=== PATIENT | male | born 1980 | race Caucasian/White ===

== ENCOUNTER 2022-10-15 10:21 | Emergency (ER) | payer OTHER ==
--- NOTE | 2022-10-15 10:36 | ED Physician Documentation ---
PD HPI ABD PAIN - Stated complaint Stated Complaint: ABD PX - Chief complaint Chief Complaint: Abd Pain - History obtained from History obtained from: Patient - History of Present Illness Timing - onset: How many hours ago (3-4), Today Timing - duration: Hours Timing - details: Abrupt onset, Still present Quality: Aching, Sharp, Pain Location: RUQ, Epigastric Radiation: No: Lower back, Right flank Associated symptoms: Nausea. No: Fever, Vomiting, Diarrhea Similar symptoms before: Has not had sx before Recently seen: Not recently seen Review of Systems Constitutional: denies: Fever, Chills Nose: denies: Rhinorrhea / runny nose, Congestion Throat: denies: Sore throat Respiratory: denies: Cough : denies: Dysuria, Frequency Musculoskeletal: denies: Neck pain, Back pain PD PAST MEDICAL HISTORY - Past Medical History Cardiovascular: None Respiratory: None GI: None : None - Present Medications Home Medications: Ambulatory Orders Medication Instructions Recorded Confirmed HYDROcod/ACETAM 5/325 [[place] 5/325] 1 ea PO Q6H PRN #14 tablet 10/15/22 - Allergies Allergies/Adverse Reactions: Allergies Allergy/AdvReac Type Severity Reaction Status Date / Time No Known Drug Allergies Allergy Verified 10/15/22 10:35 PD ED PE NORMAL - Vitals Vital signs reviewed: Yes - General General: Alert and oriented X 3, Well developed/nourished, Other (appears in pain, holding RUQ abd. ) - Neck Neck: Supple, no meningeal sign, No adenopathy - Cardiac Cardiac: RRR, No murmur - Respiratory Respiratory: No respiratory distress, Clear bilaterally - Abdomen Abdomen: Normal bowel sounds, Soft, Non distended, Other (moderately tender RUQ with some percussion and rebound tenderness locally there. No CVA tenderness. ) Results - Vitals Vitals: Vital Signs - 24 hr 10/15/22 10/15/22 10/15/22 10:32 12:42 12:43 Temperature 36.4 C L Heart Rate 70 82 49 L Respiratory 18 20 18 Rate Blood Pressure 127/96 H 130/94 H 132/94 H O2 Saturation 97 98 98 Oxygen O2 Source Room air - Labs Labs: Laboratory Tests 10/15/22 10/15/22 10/15/22 10:59 10:59 11:54 WBC 12.9 H RBC 4.82 Hgb 14.5 Hct 42.3 MCV 87.8 MCH 30.1 MCHC 34.3 RDW 13.3 Plt Count 209 MPV 10.6 Neut # (Auto) 9.7 H Lymph # (Auto) 1.9 [place] # (Auto) 0.8 Eos # (Auto) 0.4 Baso # (Auto) 0.1 Absolute Nucleated RBC 0.00 Band Neuts % (Manual) Not Reportable Abnorm Lymph % (Manual) Not Reportable Nucleated RBC % 0.0 Neutrophils # (Manual) Not Reportable Lymphocytes # (Manual) Not Reportable Monocytes # (Manual) Not Reportable Eosinophils # (Manual) Not Reportable Basophils # (Manual) Not Reportable Differential Comment MANUAL=AUTO DIFF Manual Slide Review Indicated WBC Morphology NORMAL APPEARANCE Platelet Estimate NORMAL (130-450,000) Platelet Morphology NORMAL APPEARANCE RBC Morph Micro Appear NORMAL APPEARANCE Sodium 137 Potassium 4.0 Chloride 107 Carbon Dioxide 23 Anion Gap 7.0 BUN 10 Creatinine 0.7 Estimated GFR (MDRD) 124 Glucose 113 H Calcium 9.1 Total Bilirubin 0.4 AST 36 ALT 34 Alkaline Phosphatase 81 Total Protein 8.0 Albumin 4.3 Globulin 3.7 Albumin/Globulin Ratio 1.2 Lipase 59 H Urine Color YELLOW Urine Clarity CLEAR Urine pH 5.5 Ur Specific [place] 1.025 Urine Protein NEGATIVE Urine Glucose (UA) NEGATIVE Urine Ketones NEGATIVE Urine Occult Blood NEGATIVE Urine Nitrite NEGATIVE Urine Bilirubin NEGATIVE Urine Urobilinogen 0.2 (NORMAL) Ur Leukocyte Esterase NEGATIVE Ur Microscopic Review NOT INDICATED Urine Culture Comments NOT INDICATED - Rads (name of study) upper abd US Relevant Findings:: Prelim report reviewed (no acute findings. ), See rad report PD Medical Decision Making - ED course Complexity details: reviewed results (he is having much decreased pain after some meds here. Recheck abd is much less tender. U/S and labs are essentially normal. No explanation right now. Discussed moving to CT scan now and he preferred to hold on the CT, with current testing showing not surgical/acute process identified. ), considered differential (he claims onset of pain this morning. No prior similar. No injury. pain persisting now over few hours so he came here for eval. Consider bilary colic/GB as most likely. Could be renal as well. ), d/w patient Reviewed Lab Results: Abd US without abdnormalities of GB, duct, kidney. Liver with some fatty changes. Lipase minimally elevated at 59, which is not indicative of pancreatitis. Departure - Departure Disposition: 01 Home, Self Care Clinical Impression: Right upper quadrant abdominal pain Condition: Stable Record reviewed to determine appropriate education?: Yes Instructions: ED Abdominal Pain Unkn Cause Male Prescriptions: HYDROcod/ACETAM 5/325 [[place] 5/325] 1 ea PO Q6H PRN #14 tablet PRN Reason: Pain Comments: Your ultrasound showed a normal gallbladder and bile duct. No obvious acute abnormalities of the pancreas or liver. The kidney is not swollen so no suggestion of kidney stones or infection. Your blood tests shows minimal elevation above normal of the lipase which is a pancreatic enzyme. It is not elevated in the proportion that would expect for pancreatitis (typically 3-4 times above normal with upper normal being 55). The testing excludes the more significant causes of pain in the area. It may be musculoskeletal. We can hold testing at this point and treat with some anti-inflammatories such as ibuprofen or naproxen and decreased activity since it does hurt with movement and palpation. Rest and take it easy today and tomorrow as needed. Use naproxen or ibuprofen 2 to 3 tablets 2-3 times daily with food for the next several days to week. Add Tylenol every 4-6 hours if needed for pain. To that add hydrocodone/acetaminophen if needed for worse pain. See how this does over the next 1 to 2 days. Follow-up with your primary care or back to the ER if persistent and pains or any new symptoms develop with it. Next steps and consideration could be CT scan versus other testing. If this decreases consistently over the next few days then no further work-up needed per se. [facility] [place] I am prescribing a short course of narcotic pain medication for you. These are potentially dangerous and addictive medications that should be used carefully. These medications may constipate you. Take an [id number] stool softener such as docusate twice daily with plenty of water while taking these medications. If you go 24 hours without a bowel movement, take [id number] MiraLAX, per package instructions. Do not drink or drive while taking these medications. If you received narcotic or sedating medications while in the emergency department do not drive for 24 hours. Store this medication in a safe, secure place and out of reach of children. It is a violation of federal law to give or sell this medication to another person or to use in a manner other than prescribed. The ED will not refill narcotic prescriptions, including prescriptions lost or stolen. You can dispose of unwanted medications at the [facility] office or at several pharmacies such as [facility]. Discharge Date/Time: 10/15/22 12:55
[2022-10-15] MEDS ORDERED: KETOROLAC 15 MG/ML VIAL IVP STA (10:57)
[2022-10-15] MEDS ORDERED: ONDANSETRON ODT 4 MG TABLET TL STA (10:57)
[2022-10-15] MEDS ORDERED: HYDROmorphone 1 MG/ML CARPUJECT IVP STA (10:57)
[2022-10-15 11:03] LABS: BASOPHILS # (AUTO) 0.1 10^3/uL (0.0-0.1); BASOPHILS % (AUTO) 0.5 %; EOSINOPHILS # (AUTO) 0.4 10^3/uL (0.0-0.7); HCT - HEMATOCRIT 42.3 % (42.0-52.0); HGB - HEMOGLOBIN 14.5 g/dL (14.0-18.0); LYMPHOCYTES # (AUTO) 1.9 10^3/uL (1.5-3.5); LYMPHOCYTES % (AUTO) 14.5 %; MEAN CORPUSCULAR HEMOGLOBIN 30.1 pg (27.0-31.0); MEAN CORPUSCULAR HGB CONC 34.3 g/dL (32.0-36.0); MEAN CORPUSCULAR VOLUME 87.8 fL (80.0-94.0); MEAN PLATELET VOLUME 10.6 fL (7.4-11.4); MONOCYTES # (AUTO) 0.8 10^3/uL (0.0-1.0); MONOCYTES % (AUTO) 6.2 %; NEUTROPHILS # (AUTO) 9.7 10^3/uL (1.5-6.6); NEUTROPHILS % (AUTO) 75.5 %; PLT - PLATELET COUNT 209 10^3/uL (130-450); RED BLOOD COUNT 4.82 10^6/uL (4.70-6.10); RED CELL DISTRIBUTION WIDTH 13.3 % (12.0-15.0); WHITE BLOOD COUNT 12.9 x10^3/uL (4.8-10.8)
[2022-10-15 11:05] LABS: SLIDE REVIEW? Indicated
[2022-10-15 11:16] LABS: ALBUMIN 4.3 g/dL (3.2-5.5); ALBUMIN/GLOBULIN RATIO 1.2 (1.0-2.2); BILIRUBIN,TOTAL 0.4 mg/dL (0.2-1.0); CALCIUM 9.1 mg/dL (8.5-10.3); CREATININE 0.7 mg/dL (0.6-1.2)
[2022-10-15 11:22] LABS: DIFFERENTIAL COMMENT MANUAL=AUTO DIFF; PLATELET ESTIMATE, MANUAL NORMAL (130-450,000) (NORMAL); PLATELET MORPHOLOGY NORMAL APPEARANCE (NORMAL); RBC MORPHOLOGY (MULTIPLE) NORMAL APPEARANCE (NORMAL); WBC MORPHOLOGY (MULTIPLE) NORMAL APPEARANCE (NORMAL)
[2022-10-15 12:04] LABS: BILIRUBIN,URINE NEGATIVE (NEGATIVE); GLUCOSE, URINE (UA) NEGATIVE (NEGATIVE); KETONES,URINE (UA) NEGATIVE (NEGATIVE); LEUKOCYTE ESTERASE, URINE NEGATIVE (NEGATIVE); NITRITE,URINE NEGATIVE (NEGATIVE); OCCULT BLOOD,URINE NEGATIVE (NEGATIVE); PH,URINE 5.5 PH (5.0-7.5); PROTEIN,URINE NEGATIVE (NEGATIVE); UROBILINOGEN,URINE 0.2 (NORMAL) E.U./dL (NORMAL)
[2022-10-15 12:06] LABS: CLARITY,URINE CLEAR (CLEAR)
--- NOTE | 2022-10-15 12:15 | Ultrasound Report ---
PROCEDURE: Abdomen Limited INDICATIONS: abrupt RUQ pain this morning TECHNIQUE: Real-time focused scanning was performed of the abdomen, with image documentation. COMPARISONS: None. FINDINGS: Liver: Liver is normal in size and show increased liver parenchymal echotexture. Simple cyst in left hepatic lobe measures 7 x 5 x 9 mm in size is seen. Gallbladder: Unremarkable. Biliary ducts: Intrahepatic bile ducts are non-dilated. Extrahepatic bile duct caliber measures 3.7 mm. Normal is 6-7 mm or less in diameter, or 10 mm or less post-cholecystectomy. Pancreas: Visualized portions of the pancreas are sonographically normal. Pancreatic duct measures up to 3.9 mm in pancreatic head region. Right kidney: Normal in size and echotexture. Right kidney measures 13.1 cm long. No hydronephrosis or nephrolithiasis. No solid masses. No complex renal cystic lesions which require follow-up. Miscellaneous: No free abdominal fluid. IMPRESSION: 1. Mild hepatic steatosis, no discrete hepatic lesion. 2. Normal-appearing gallbladder. No intraextrahepatic biliary ductal dilatation. 3. Slightly prominent pancreatic duct near pancreatic head level is seen. No gross abnormality is see n in visualized portion of pancreas. Reviewed by: Bipin Pena MD on 10/15/2022 12:14 PM PDT Approved by: Bipin Pena MD on 10/15/2022 12:14 PM PDT Station ID: [id number]
[2022-10-15 12:45] VITALS: BP 132/94
== END 2022-10-15 12:55 | disposition home or self-care (01) ==
LOC: ED 10:21
DX: R10.11 Right upper quadrant pain (principal)
CPT/HCPCS: 36415; 76705; 80053; 81003; 83690; 85025; 96374; 99284; J1170; Q0162; 81001; 87086